=== PATIENT | male | born 1950 | race Caucasian/White ===

== ENCOUNTER → 2019-02-24 | Outpatient (CLI) | payer MEDICARE ==
[~2019-02-24] VITALS: Ht 185.4 cm; Wt 101.0 kg
[~2019-02-24] MED LIST: ACET-66 PO; AMLO10TA55 PO; ASCO250T5 PO; CHL25 PO; DOXY50CA2 PO; HYDR12.530 PO; IBUP100O27 PO; LISI40TA4 PO; MULT-248 PO
[2019-02-24 11:00] VITALS: BP 124/90
[2019-02-24 14:03] LABS: BASOPHILS % (AUTO) 0.9 % (0.0-2.0); EOSINOPHILS % (AUTO) 3.7 % (1.0-6.0); HEMATOCRIT 42.7 % (41-53); HEMOGLOBIN 14.3 g/dL (13.5-17.5); LYMPHOCYTES # (AUTO) 2.8 K/uL (1.0-4.8); LYMPHOCYTES % (AUTO) 23.2 % (22.0-44.0); MEAN CORPUSCULAR HEMOGLOBIN 32.6 pg (26.0-34.0); MEAN CORPUSCULAR HGB CONC 33.4 G/dL (31.0-37.0); MEAN CORPUSCULAR VOLUME 98 fL (80-100); MONOCYTES # (AUTO) 1.4 K/uL (0.1-1.0); MONOCYTES % (AUTO) 11.2 % (2.0-9.0); NEUTROPHILS # (AUTO) 7.5 K/uL (1.8-7.7); PLATELET COUNT (AUTO) 375 K/uL (150-450); RED BLOOD CELL COUNT(AUTO) 4.38 MIL/uL (4.50-5.90); RED CELL DISTRIBUTION WIDTH 14.1 % (11.5-14.5)
[2019-02-24 14:17] LABS: HEMOGLOBIN A1C 5.2 % (4.5-6.2)
[2019-02-24 14:21] LABS: ALBUMIN 3.6 g/dL (3.4-5.0); BILIRUBIN,TOTAL 0.3 mg/dL (0.1-1.0); C-REACTIVE PROTEIN QUANT 0.22 mg/dL (0.00-0.30); CREATININE 1.25 mg/dL (0.60-1.30); POTASSIUM 3.6 mmol/L (3.5-5.1)
[2019-02-24 15:26] LABS: CALCIUM, TOTAL 12.1 mg/dL (8.8-10.5)
== END | disposition home or self-care (01) ==
LOC: HBOWC 11:21
PROVIDERS: ATTEND Internal Medicine
DX: T81.89XA Other complications of procedures, not elsewhere classified, initial encounter (principal); M19.021 Primary osteoarthritis, right elbow; M19.031 Primary osteoarthritis, right wrist; E11.9 Type 2 diabetes mellitus without complications; F17.210 Nicotine dependence, cigarettes, uncomplicated; F17.290 Nicotine dependence, other tobacco product, uncomplicated; Y83.8 Other surgical procedures as the cause of abnormal reaction of the patient, or of later complication, without mention of misadventure at the time of the procedure; Y92.89 Other specified places as the place of occurrence of the external cause
CPT/HCPCS: 11042; 36415; 80053; 83036; 84134; 85025; 86140; G0463

== ENCOUNTER → 2019-03-01 | Outpatient (CLI) | payer MEDICARE ==
[~2019-03-01] MED LIST changes: -ASCO250T5 PO; -DOXY50CA2 PO; -HYDR12.530 PO; -IBUP100O27 PO; +IOVERSOL 350 MG/ML 100 ML VIAL ONE; -LISI40TA4 PO; +SODIUM CHLORIDE 0.9% 100 ML ONE
== END | disposition home or self-care (01) ==
LOC: RADMN 08:00
PROVIDERS: ATTEND Nurse Practitioner Adult Health
DX: S62.241A Displaced fracture of shaft of first metacarpal bone, right hand, initial encounter for closed fracture (principal); S51.801A Unspecified open wound of right forearm, initial encounter; S51.001A Unspecified open wound of right elbow, initial encounter; M19.031 Primary osteoarthritis, right wrist; M19.021 Primary osteoarthritis, right elbow; L03.113 Cellulitis of right upper limb; M79.89 Other specified soft tissue disorders; E11.622 Type 2 diabetes mellitus with other skin ulcer; X58.XXXA Exposure to other specified factors, initial encounter; Y93.89 Activity, other specified; Y92.89 Other specified places as the place of occurrence of the external cause; Y99.8 Other external cause status
CPT/HCPCS: 73201; J7050; Q9967

== ENCOUNTER → 2019-03-10 | Outpatient (CLI) | payer BC, MEDICARE ==
[~2019-03-10] MED LIST changes: -IOVERSOL 350 MG/ML 100 ML VIAL ONE; -SODIUM CHLORIDE 0.9% 100 ML ONE
[2019-03-10 08:43] VITALS: BP 148/94
== END | disposition home or self-care (01) ==
LOC: HBOWC 08:26
PROVIDERS: ATTEND Internal Medicine
DX: T81.89XD Other complications of procedures, not elsewhere classified, subsequent encounter (principal); S51.001D Unspecified open wound of right elbow, subsequent encounter; S51.801D Unspecified open wound of right forearm, subsequent encounter; M19.021 Primary osteoarthritis, right elbow; M19.031 Primary osteoarthritis, right wrist; F17.210 Nicotine dependence, cigarettes, uncomplicated; X58.XXXD Exposure to other specified factors, subsequent encounter; Y83.8 Other surgical procedures as the cause of abnormal reaction of the patient, or of later complication, without mention of misadventure at the time of the procedure
CPT/HCPCS: 11042

== ENCOUNTER → 2019-03-17 | Outpatient (CLI) | payer BC ==
[2019-03-17 08:00] VITALS: BP 134/85
== END | disposition home or self-care (01) ==
LOC: HBOWC 07:45
PROVIDERS: ATTEND Internal Medicine
DX: T81.89XD Other complications of procedures, not elsewhere classified, subsequent encounter (principal); S51.001D Unspecified open wound of right elbow, subsequent encounter; S51.801D Unspecified open wound of right forearm, subsequent encounter; M19.021 Primary osteoarthritis, right elbow; M19.031 Primary osteoarthritis, right wrist; F17.210 Nicotine dependence, cigarettes, uncomplicated; X58.XXXD Exposure to other specified factors, subsequent encounter; Y83.8 Other surgical procedures as the cause of abnormal reaction of the patient, or of later complication, without mention of misadventure at the time of the procedure